=== PATIENT | female | born 1940 | race Caucasian/White ===

== ENCOUNTER 2023-09-09 06:54 | Emergency (ER) | payer MEDICARE, OTHER, SELFPAY ==
[2023-09-09] VITALS (7 sets, daily range): BP systolic 130–171; BP diastolic 75–83; PULSE 94–106; RESP 16–18; TEMP 37.2; O2SAT 94–99; BMI 33.2
--- NOTE | 2023-09-09 07:27 | ED_ITS ---
HPI - SOB/Dyspnea General Chief Complaint: Upper Respiratory Symptoms Stated Complaint: coughing weakness Time Seen by Provider: 09/09/23 07:12 History of Present Illness HPI Narrative: Patient is a 83-year-old female history of diabetes on metformin presenting today with 2 days of cough. She reports that she has been coughing quite a bit and now her right ribs hurt. She denies significant shortness of breath. She has no productive cough. She denies any significant chest pain or fever. She has been taking Tylenol which seems to help. They do live in [place] but they have been here for about 2 months they live in their . Related Data Previous Rx's Medication Instructions Recorded benzonatate 200 mg capsule 200 mg PO TID PRN cough #20 caps 09/09/23 Allergies Allergy/AdvReac Type Severity Reaction Status Date / Time codeine Allergy Unknown Verified 09/09/23 07:35 latex Allergy Unknown Verified 09/09/23 07:35 levofloxacin [From Levaquin] Allergy Unknown Verified 09/09/23 07:35 Sulfa (Sulfonamide Allergy Unknown Verified 09/09/23 07:35 Antibiotics) maxsillin Allergy Unknown Uncoded 09/09/23 07:35 Patient History Social History Smoking Status: Former smoker Exam Initial Vital Signs Initial Vital Signs: Vital Signs Pulse Rate 106 H 09/09/23 07:25 Pulse Oximetry 96 09/09/23 07:25 GENERAL: Alert pleasant 83-year-old female and in no acute distress. HEENT: Head atraumatic,EOMI, pupils reactive, face symmetric, moist mucous membranes CARDIOVASCULAR: Regular rate and rhythm without murmurs, rubs or gallops. RESPIRATORY: Mild tenderness to right ribs clear breath sounds no respiratory distress ABDOMEN: Soft, nontender. Normoactive bowel sounds all 4 quadrants. No guarding or rebound. EXTREMITIES: Normal range of motion, no clubbing or edema. Neurovascularly intact NEUROLOGICAL: Alert and oriented x4.Normal gait and speech. SKIN: Warm, dry, no laceration, no petechiae, no rashes or lesions. Course Orders Ordered: ED Orders 09/09/23 07:32 Chest [XR chest 2V] Stat 09/09/23 07:36 Respiratory Panel (Film Array) Stat Discontinued Medications Acetaminophen (Acetaminophen 325 Mg Tablet) 975 mg PO NOW ONE Stop: 09/09/23 07:33 Last Admin: 09/09/23 07:45 Dose: 975 mg Documented By: PAMELLA Vital Signs Vital signs: Vital Signs - 8 hr 09/09/23 07:25 09/09/23 07:28 09/09/23 07:30 Temperature 98.9 F Pulse Rate 106 H 105 H Respiratory Rate 18 Blood Pressure 171/80 H 161/75 H Pulse Oximetry 96 99 Oxygen Delivery Method Room Air 09/09/23 07:30 09/09/23 08:00 09/09/23 08:30 Temperature Pulse Rate 98 H Respiratory Rate Blood Pressure Pulse Oximetry 97 96 94 Oxygen Delivery Method Room Air 09/09/23 09:00 09/09/23 09:44 Temperature Pulse Rate 94 H Respiratory Rate 16 Blood Pressure 130/83 Pulse Oximetry 94 96 Oxygen Delivery Method Room Air MDM - SOB/Dyspnea Lab Data Labs: Lab Results 09/09/23 09/09/23 09/09/23 Range/Units 07:36 07:36 07:36 Chlamy pneumoniae PCR Not detected (Not Detect) Adenovirus (PCR) Not detected (Not Detect) B.parapertussis DNA PCR Not detected (Not Detecte) Coronavirus OC43 (PCR) Not detected (Not Detect) Coronavirus HKU1 (PCR) Not detected (Not Detect) Coronavirus 229E (PCR) Not detected (Not Detect) SARS-CoV-2 (PCR) Cancelled Detected H Coronavirus NL63 (PCR) Not detected (Not Detect) Human Metapneumovir PCR Not detected (Not Detect) Influenza A (RT-PCR) Cancelled Influenza Type A (PCR) Not detected (Not Detect) Influenza B (RT-PCR) Cancelled Influenza Type B (PCR) Not detected (Not Detect) M. pneumoniae (PCR) Not detected (Not Detect) Parainfluenza 1 (PCR) Not detected (Not Detect) Parainfluenza 2 (PCR) Not detected (Not Detect) Parainfluenza 3 (PCR) Not detected (Not Detect) Parainfluenza 4 (PCR) Not detected (Not Detect) RSV (PCR) Cancelled Not detected Entero/Rhino (PCR) Not detected (Not Detect) Imaging Data Chest x-ray: Radiologist's Impression: PROCEDURE: XR CHEST 2V INDICATIONS: cough right rib pain TECHNIQUE: 2 views of the chest were acquired. COMPARISON: None. FINDINGS: Surgical changes and devices: None. Lungs and pleura: Lungs are clear. No pleural effusions or pneumothorax. Mediastinum: Mediastinal contours are normal. Heart size is normal. Bones and chest wall: No suspicious bony abnormalities. Soft tissues appear unremarkable. IMPRESSION: No acute cardiopulmonary abnormality is seen. Approved by: Naila Mendoza M.D.,Ph.D. on 09/09/2023 at 8:19 MDM Narrative Medical decision making narrative: Patient 83-year-old female history of diabetes presenting today with 2 days of cough. She and her traveled here from [place] 2 months ago when an RV. She does definitely has nonproductive cough breath sounds are clear no respiratory distress or hypoxia. Tender to touch on her right side worse with breathing. I suspect this is musculoskeletal and costochondritis. She denies any fever but is actively coughing in the emergency department. Chest x-ray has been reviewed and negative for pneumonia and fracture viral panel has been in valid x2 however respiratory panel is running. At this time no antibiotics are indicated I suspect a viral illness. She overall appears well nonseptic. Discussion and when to return to the emergency department with patient and . Viral panel is back and positive for COVID. I have called and updated patient's chin on symptoms and test results Discharge Plan Departure Patient Disposition: Home Clinical Impression: Upper respiratory infection Instructions: DI for Viral Upper Respiratory Infection -- Adult Activity Restrictions/Additional Instructions: *You have been diagnosed with upper respiratory in fact *What to do: at this time no need for antibiotics. X-ray is clear. Please stay hydrated *Continue to take medications as directed Tylenol 650 mg every 4-6 hours for [id number] Motrin 600 mg every 6 hours for [id number] pain Tessalon Perles every 8 hours if needed for cough *Follow up with your primary care provider in 2-3 days or call [phone] *Return to ER if you should have increasing confusion not tolerating fluids increasing shortness of breath [or] any new, worsening or concerning symptoms Prescriptions: New benzonatate 200 mg capsule 200 mg PO TID PRN (Reason: cough) Qty: 20 0RF Stand Alone Forms: Patient Portal/API
--- NOTE | 2023-09-09 07:32 | DI.RAD.S_ITS ---
PROCEDURE: XR CHEST 2V INDICATIONS: cough right rib pain TECHNIQUE: 2 views of the chest were acquired. COMPARISON: None. FINDINGS: Surgical changes and devices: None. Lungs and pleura: Lungs are clear. No pleural effusions or pneumothorax. Mediastinum: Mediastinal contours are normal. Heart size is normal. Bones and chest wall: No suspicious bony abnormalities. Soft tissues appear unremarkable. IMPRESSION: No acute cardiopulmonary abnormality is seen. Approved by: Naila Mendoza M.D.,Ph.D. on 09/09/2023 at 8:19
[2023-09-09] MEDS: ACETAMINOPHEN 325 MG TABLET 975 MG PO (07:45)
[2023-09-09 10:02] LABS: Adenovirus Not Detected (Not Detect); B. parapertussis Not Detected (Not Detecte); Bordetella pertussis Not Detected (Not Detect); Chlamydophila pneumoniae Not Detected (Not Detect); Coronavirus 229E Not Detected (Not Detect); Coronavirus HKU1 Not Detected (Not Detect); Coronavirus NL 63 Not Detected (Not Detect); Coronavirus OC43 Not Detected (Not Detect); Human Metapneumovirus Not Detected (Not Detect); Human Rhinovirus/Enterovirus Not Detected (Not Detect); Influenza A Not Detected (Not Detect); Influenza B Not Detected (Not Detect); Mycoplasma pneumoniae Not Detected (Not Detect); Parainfluenza Virus 1 Not Detected (Not Detect); Parainfluenza Virus 2 Not Detected (Not Detect); Parainfluenza Virus 3 Not Detected (Not Detect); Parainfluenza Virus 4 Not Detected (Not Detect); Respiratory Syncytial Virus Not Detected (Not Detect); SARS- CoV-2 Detected (Not Detecte)
== END 2023-09-09 09:46 | disposition home or self-care (01) ==
PROVIDERS: Emergency Provider Emergency Medicine
DX: J06.9 Acute upper respiratory infection, unspecified (principal); R07.81 Pleurodynia; E11.9 Type 2 diabetes mellitus without complications; Z11.52 Encounter for screening for COVID-19
CPT/HCPCS: 71046; 87633; 99283